=== PATIENT | female | born 1940 | race Caucasian/White ===

== ENCOUNTER 2024-10-09 14:40 | Emergency (ER) | payer MEDICARE ==
[~2024-10-09] VITALS: Ht 165.1 cm; Wt 75.5 kg
[~2024-10-09 14:40] MED LIST: ESOM40CA PO
[2024-10-09 14:42] VITALS: TEMP 97.8
[2024-10-09 16:38] LABS: BASOPHILS # (AUTO) 0.1 X10'3 (0-0.2); EOSINOPHILS # (AUTO) 0.4 X10'3 (0-0.9); HEMOGLOBIN 13.2 g/dl (12.0-16.0); LYMPHOCYTES # (AUTO) 1.6 X10'3 (1.1-4.8); MEAN CORPUSCULAR HGB CONC 34.3 g/dL (33.0-36.5); MEAN PLATELET VOLUME 9.1 FL (7.4-10.4); MONOCYTES # (AUTO) 0.6 X10'3 (0-0.9); NEUTROPHILS # (AUTO) 4.3 X10'3 (1.8-7.7); PLATELET COUNT 232 X10'3 (140-440); RED CELL DISTRIBUTION WIDTH 13.5 % (11.5-14.5)
[2024-10-09 16:40] LABS: BASOPHILS % (AUTO) 1.1 % (0-1); EOSINOPHILS % (AUTO) 6.4 % (0-6); HEMATOCRIT 38.5 % (35.0-45.0); LYMPHOCYTES % (AUTO) 22.9 % (21-51); MEAN CORPUSCULAR HEMOGLOBIN 32.6 PG (27.0-31.0); MEAN CORPUSCULAR VOLUME 94.9 FL (78-98); MONOCYTES % (AUTO) 8.7 % (2-12); NEUTROPHILS % (AUTO) 60.9 % (42-75); RED BLOOD COUNT 4.06 X10'6 (4.20-5.60)
[2024-10-09 16:51] LABS: ALANINE AMINOTRANSFERASE 16 U/L (12-78); ALBUMIN 3.7 G/DL (3.4-5.0); ALBUMIN/GLOBULIN RATIO 0.7 (1.1-1.5); ALKALINE PHOSPHATASE 95 IU/L (46-116); ASPARTATE AMINO TRANSFERASE 17 U/L (10-37); BILIRUBIN,TOTAL 0.4 MG/DL (0.1-1.0); BLOOD UREA NITROGEN 29 MG/DL (7-18); BUN/CREATININE RATIO 24.6 (10.0-20.0); CALCIUM 9.3 MG/DL (8.5-10.1); CREATININE 1.18 MG/DL (0.40-0.90); GLUCOSE 119 MG/DL (70-104); TOTAL CARBON DIOXIDE 26.2 MMOL/L (24-32); TOTAL PROTEIN 8.7 G/DL (6.4-8.2); eCRCL 32 ML/MIN; eGFR 44 ML/MIN
[2024-10-09 16:59] LABS: PRO BRAIN NATRIURETIC PEPTIDE 128 PG/ML (0-450)
[2024-10-09 17:05] LABS: ANION GAP 11 (8-16); CHLORIDE 106 MMOL/L (99-107); POTASSIUM 3.4 MMOL/L (3.5-5.1); SODIUM 143 MMOL/L (135-145)
[2024-10-09 18:24] VITALS: BP 121/63; PULSE 73; RESP 16; O2SAT 99
== END 2024-10-09 18:27 | disposition home or self-care (01) ==
LOC: ER 14:40
DX: S91.301A Unspecified open wound, right foot, initial encounter (principal); Z88.5 Allergy status to narcotic agent; X58.XXXA Exposure to other specified factors, initial encounter; Y93.89 Activity, other specified; Y92.89 Other specified places as the place of occurrence of the external cause; Y99.8 Other external cause status
CPT/HCPCS: 36415; 71045; 80053; 83880; 84484; 85025; 93005; 93970; 99285